=== PATIENT | female | born 1955 | race Two or more races ===

== ENCOUNTER → 2025-01-21 | Outpatient (CLI) | payer MEDICARE, MEDICAID, SELFPAY ==
[2025-01-21 11:01] LABS: Misc Send Out* See Sep Rpt
[2025-01-21 12:07] LABS: Basophils # (Auto) 0.0 Thou/mm3 (0.0-0.2); Basophils % (Auto) 1 % (0-2.5); Eosinophils # (Auto) 0.1 Thou/mm3 (0.0-0.5); Eosinophils % (Auto) 2 % (0-10); Hematocrit 42.1 % (36.0-46.0); Hemoglobin 14.1 g/dL (12.0-16.0); Immature Granulocytes Auto 0.02 Thou/mm3 (0.00-0.00); Lymphocytes # (Auto) 2.4 Thou/mm3 (1.0-4.8); Lymphocytes % (Auto) 42 % (10-50); Mean Corpuscular HGB Conc 33.5 g/dl (31.0-37.0); Mean Corpuscular Hemoglobin 30.6 pg (25.0-35.0); Mean Corpuscular Volume 91 fL (80-100); Monocytes # (Auto) 0.5 Thou/mm3 (0.0-0.8); Monocytes % (Auto) 9 % (0-12); Neutrophils # (Auto) 2.7 Thou/mm3 (1.8-7.7); Neutrophils % (Auto) 47 % (37-80); Nucleated Red Blood Cell # 0.00 Thou/mm3 (0.00-0.00); Nucleated Red Blood Cell % 0 /100 WBC (0); Platelet Count 190 Thou/mm3 (140-440); RDW Standard Deviation 41.4 fL (36.4-46.3); Red Blood Count 4.61 Miln/mm3 (4.00-5.20); White Blood Count 5.7 Thou/mm3 (3.6-11.0)
[2025-01-21 12:11] LABS: Glucose Estimated Average 114 mg/dL (80-131); Hemoglobin A1C 5.6 % Hgb (4.8-6.0)
[2025-01-21 12:24] LABS: Alanine Aminotransferase 44 U/L (10-49); Albumin, Serum 4.5 gm/dL (3.4-4.8); Albumin/Globulin Ratio 1.5 (1.2-2.2); Alkaline Phosphatase 101 U/L (46-116); Anion Gap 10 (7-16); Aspartate Amino Transferase 35 U/L (0-34); BUN/Creatinine Ratio 14 Ratio (12-20); Bilirubin,Total 0.6 mg/dL (0.3-1.2); Blood Urea Nitrogen 11 mg/dL (9-23); Calcium 10.2 mg/dL (8.3-10.6); Calcium (Corrected) 10.2 mg/dL (8.5-10.1); Carbon Dioxide 26.6 mMol/L (20.0-31.0); Cardiac Risk Estimate 3.4 RATIO (3.7-5.6); Chloride 105 mMol/L (98-107); Cholesterol 255 mg/dL (132-200); Creatinine (Component) 0.8 mg/dL (0.6-1.3); Free T4 (Free Thyroxine) 1.02 ng/dL (0.89-1.76); Globulin 3.1 gm/dL (2.3-3.5); Glucose 104 mg/dL (74-106); HDL Cholesterol 74 mg/dL (40-60); LDL Cholesterol,Calculated 153 mg/dL (0-130); Osmolality,Calculated 282 (275-295); Potassium 5.0 mMol/L (3.4-5.1); Sodium 142 mMol/L (136-145); Thyroid Stimulating Hormone 0.95 uIU/mL (0.55-4.78); Total Protein 7.6 gm/dL (5.7-8.2); Triglycerides 138 mg/dL (30-150); eGFR > 60 See Note
[2025-01-21 12:37] LABS: Folate > 24.00 ng/mL (>5.38); Vitamin B12 838 pg/mL (211-911); Vitamin D 25 Hydroxy Total 49.9 ng/mL (7.3-40.2)
== END | disposition home or self-care (01) ==
LOC: COPL 10:13
PROVIDERS: PCP Internal Medicine; Referring Provider Internal Medicine; Visit Provider Internal Medicine
DX: I11.0 Hypertensive heart disease with heart failure (principal); E11.9 Type 2 diabetes mellitus without complications; E55.9 Vitamin D deficiency, unspecified; E03.9 Hypothyroidism, unspecified
CPT/HCPCS: 36415; 80053; 80061; 82306; 82607; 82746; 83036; 84439; 84443; 85025; 86003